=== PATIENT | female | born 1990 | race Caucasian/White ===

== ENCOUNTER 2021-01-11 10:03 | Emergency (ER) | payer SELFPAY ==
[~2021-01-11] VITALS: Ht 160.2 cm; Wt 48.1 kg
[2021-01-11 10:16] VITALS: BP 109/65
[2021-01-11] MEDS ORDERED: IBUP-1780 PO (10:41)
[2021-01-11] MEDS ORDERED: CYCL10TA9 PO (10:41)
--- NOTE | 2021-01-11 10:41 | ED Hip Pain/Injury ---
General Chief Complaint: Hip/Pelvic Problems Stated Complaint: RIGHT HIP/TAILBONE PAIN Nursing Triage Note: PT AMBULATE TO ROOM FS02 WITH C/O RIGHT HIP PAIN. PT STATES THAT SHE SAT DOWN YESTERDAY INTO A CHAIR AND HER RIGHT HIP "POPPED" AND NOW HAS PAIN TO RIGHT HIP AND COCCYX. PT STATES THAT THE PAIN WAS SO SEVERE THIS MORNNING AT 0100 THAT SHE "PASSED OUT" WHILE ATTEMPTIG TO USE THE BATHROOM. PT REPORTS TYLENOL AT 0600 TODAY. History of Present Illness Date Seen by Provider: Jan 11, 2021 Time Seen by Provider: 10:30 Initial Comments Patient presents with right hip pain, onset yesterday when sitting down into a chair. She said she felt a popping sensation in her right buttock radiating to her right hip. Now pain with movement and certain positions. No similar symptoms in the past, denies any history of hip problems or back problems. Has only taken Tylenol with relief. Denies any radiation of pain to her lower extremity other than the hip area. Denies any weakness, loss of sensation or loss of bowel or bladder control. Recent illness, fever chills or abdominal pain. Allergies and Home Medications Home Medications Cyclobenzaprine HCl 10 Mg Tablet, 10 MG PO Q8H PRN for SPASMS Prescribed by: AUGUSTINE ZAVALA on 01/11/21 1041 Ibuprofen 800 Mg Tablet, 800 MG PO Q8H PRN for PAIN Prescribed by: AUGUSTINE ZAVALA on 01/11/21 1041 Patient Home Medication List Home Medication List Reviewed: Yes Review of Systems Constitutional: No dizziness, No fever, No malaise, No weakness Respiratory: no symptoms reported Cardiovascular: no symptoms reported Gastrointestinal: No abdominal pain, No constipation, No diarrhea, No loss of appetite, No nausea, No vomiting Genitourinary: No dysuria, No hematuria Musculoskeletal: see HPI; No back pain, No joint pain, No joint swelling; muscle pain, muscle cramps; No muscle twitching, No muscle weakness Skin: No change in color, No rash Past Igyhgin-Etuswb-[id number] Hx Patient Social History Tobacco Use?: Yes Tobacco type used: Cigarettes Smoking Status: Current Everyday Smoker Smokeless Tobacco Frequency: Never a User Substance use?: No Alcohol Use?: No Pt feels they are or have been: No Physical Exam Vital Signs Vital Signs - First Documented 01/11/21 10:16 Temp 37.0 Pulse 107 Resp 18 B/P (MAP) 109/65 (80) O2 Delivery Room Air Capillary Refill : Less Than 3 Seconds Height, Weight, BMI Height: '" Weight: lbs. oz. kg; 18.00 BMI Method: General Appearance: No Apparent Distress, WD/WN Gastrointestinal: Normal Bowel Sounds, Non Tender, Soft Back: Normal Inspection, No CVA Tenderness, No Vertebral Tenderness Extremity: Normal Capillary Refill, Normal Inspection, No Calf Tenderness, No Pedal Edema, Pelvis Stable, Other (tenderness- R gluteus ms w ms spasm. no hip joint TTP. NO lumbar spine TTP) Progress/Results/Core Measures Results/Orders Vital Signs/I&O 01/11/21 10:16 Temp 37.0 Pulse 107 Resp 18 B/P (MAP) 109/65 (80) O2 Delivery Room Air Blood Pressure Mean: 80 Departure Impression Primary Impression: Muscle strain of right gluteal region Qualified Codes: S76.011A - Strain of muscle, fascia and tendon of right hip, initial encounter Disposition: 01 HOME, SELF-CARE Condition: Stable Departure-Patient Inst. Decision time for Depature: 10:39 Referrals: [facility] [place],LOCAL PHYSICIAN (PCP) Primary Care Physician Patient Instructions: Muscle Strain (DC) Add. Discharge Instructions: Establish a PCP for follow up care in 1 week if not improving, sooner if worse. All discharge instructions reviewed with patient and/or family. Voiced understanding. Scripts Ibuprofen (Ibuprofen) 800 Mg Tablet 800 MG PO Q8H PRN for PAIN, #30 TAB 0 Refills Prov: AUGUSTINE ZAVALA DO 01/11/21 Cyclobenzaprine HCl (Cyclobenzaprine HCl) 10 Mg Tablet 10 MG PO Q8H PRN for SPASMS, #15 TAB 0 Refills Prov: ROVENSTINEAUGUSTINE L DO 01/11/21 AUGUSTINE ZAVALA DO Jan 11, 2021 10:41
== END 2021-01-11 10:44 | disposition home or self-care (01) ==
LOC: ER FS 10:07
DX: S76.011A Strain of muscle, fascia and tendon of right hip, initial encounter (principal); F17.210 Nicotine dependence, cigarettes, uncomplicated; X50.0XXA Overexertion from strenuous movement or load, initial encounter
CPT/HCPCS: 99282